=== PATIENT | female | born 1985 | race Asian ===

== ENCOUNTER 2022-01-13 12:23 | Emergency (ER) | payer BC ==
[2022-01-13 13:13] LABS: Bilirubin Negative (Negative); Blood, Urine Small (Negative); Clarity Slightly Cloudy (Clear); Glucose, Urine (Dipstick) Negative (Negative); Ketone, Urine Negative (Negative); Leukocyte Negative (Negative); Nitrite Negative (Negative); Protein, Urine (Dipstick) Negative (Neg-Trace); Urobilinogen 0.2 mg/dL (Less than 2); pH, Urine 6.5 (5.0-9.0)
[2022-01-13 13:14] LABS: Bacteria/HPF 3+ HPF (None Seen); RBC/HPF 0-3 HPF (0-3); WBC/HPF 0-3 HPF (0-3)
[2022-01-13 13:15] LABS: Pregnancy Test - Urine (BHCG) Negative (Negative); Pregu Control Background? CLEAR/WHITE (CLR/WHITE); Pregu Control Bar Appear? YES (CONTROL BAR)
== END 2022-01-13 13:34 | disposition home or self-care (01) ==
LOC: MADERS 12:23
DX: R10.30 Lower abdominal pain, unspecified (principal)
CPT/HCPCS: 81003; 81015; 81025; 99284